=== PATIENT | male | born 1955 | race Caucasian/White ===

== ENCOUNTER 2017-12-09 16:51 | Inpatient (IN) ==
[2017-12-09] MEDS ORDERED: 0.9 % Sodium Chloride 1,000 ML IVC ONE ×2 (17:12→17:57)
[2017-12-09 17:23] LABS: Bilirubin,Urine Moderate (Negative); Blood,Urine Large (Negative); Clarity,Urine Turbid (Clear); Color,Urine Red (Yellow); Glucose,Urine (UA) Normal (Normal); Ketones,Urine 15 mg/dL (Negative); Leukocyte Esterase,Urine Large (Negative); Nitrite,Urine Positive (Negative); Protein,Urine >=300 mg/dL (Neg-Trace); Specific Gravity,Urine 1.021 (1.010-1.025)
[2017-12-09 17:25] LABS: Bacteria,Urine Many per hpf (None-Few); Hyaline Casts,Urine None Seen per lpf (None-Few); RBC,Urine TNTC per hpf (0-3); Squamous Epithelial Cell,Urine Many per lpf (None-Few); WBC,Urine TNTC per hpf (0-3)
[2017-12-09 17:45] LABS: Hematocrit 39.8 % (37.5-50.1); Hemoglobin 13.4 g/dL (12.9-16.9); Immature Platelets 5.6 % (1.1-6.1); Mean Corpuscular HGB Conc 33.7 g/dL (31.6-35.5); Mean Corpuscular Hemoglobin 30.6 pg (28.0-33.3); Mean Corpuscular Volume 90.9 fL (83.0-100.0); Mean Platelet Volume 10.5 fL (9.4-12.4); Red Blood Count 4.38 M/mcL (4.19-5.50); Red Cell Distribution Width 13.6 % (11.5-14.5)
--- NOTE | 2017-12-09 17:49 | Emergency Department Note ---
Disposition Clinical Impression: Pyelonephritis, Kidney stone, Acute kidney injury Disposition: Admitted As Inpatient Condition: Good General Adult HPI - General Chief complaint: ED General Medical Stated complaint: "chills,cough,vomiting" Time Seen by Provider: 12/09/17 17:09 Source: patient, family Limitations: no limitations - History of Present Illness Pain Scale: 9 - Related Data Home Medications Medication Instructions Recorded Confirmed Atorvastatin [Lipitor] 10 mg PO HS 11/19/17 12/09/17 Celecoxib [Celebrex] 200 mg PO BID 11/19/17 12/09/17 HYDROcodone/Acet 5/325 mg [[place] 1 - 2 tab PO Q12H PRN 11/19/17 12/09/17 5-325 mg] Pregabalin [Lyrica] 25 mg PO TID 11/19/17 12/09/17 Tamsulosin [Flomax] 0.4 mg PO DAILY 11/19/17 12/09/17 Allergies Allergy/AdvReac Type Severity Reaction Status Date / Time Varenicline [From Chantix] Allergy Agitated Verified 12/06/17 11:13 Past Medical History - Past Medical History Medical history: Reports: arthritis, GERD, hyperlipidemia, kidney stones Psychiatric history: Reports: no psych history - Social History Smoking Status: Current every day smoker Smokeless Tobacco Status: No Alcohol use: Reports: none Drug use: Reports: none Physical Exam - General Limitations: no limitations General appearance: alert, in no apparent distress Course Vital Signs Temperature 98.4 F 12/09/17 16:53 Pulse Rate 103 12/09/17 16:53 Respiratory Rate 14 12/09/17 16:53 Blood Pressure 123/69 12/09/17 16:53 O2 Sat by Pulse Oximetry 94 12/09/17 16:53 Temperature 101.1 F H 12/10/17 06:53 Pulse Rate 94 12/10/17 06:53 Respiratory Rate 15 12/10/17 06:53 Blood Pressure 101/59 12/10/17 06:53 O2 Sat by Pulse Oximetry 95 12/10/17 06:53 Oxygen Delivery Oxygen Delivery Room Air Medical Decision Making - Lab Data Result diagrams: 12/10/17 04:55 12/10/17 04:55 Lab Results 12/09/17 12/09/17 12/09/17 Range/Units 17:13 17:26 17:28 WBC 14.3 H D (4.3-11.1) K/mcL RBC 4.38 (4.19-5.50) M/mcL Hgb 13.4 D (12.9-16.9) g/dL Hct 39.8 (37.5-50.1) % MCV 90.9 (83.0-100.0) fL MCH 30.6 (28.0-33.3) pg MCHC 33.7 (31.6-35.5) g/dL RDW 13.6 (11.5-14.5) % Plt Count 95 L (140-400) K/mcL MPV 10.5 (9.4-12.4) fL Immature Plt Fraction 5.6 (1.1-6.1) % Sodium (136-145) mEq/L Potassium (3.5-5.1) mEq/L Chloride (98-107) mEq/L Carbon Dioxide (23-29) mEq/L BUN (8-23) mg/dL Creatinine (0.70-1.30) mg/dL Est GFR ( Amer) (> 60) Est GFR (Non-Af Amer) (> 60) BUN/Creatinine Ratio (6-26) Glucose (70-105) mg/dL Calculated Osmolality (280-300) Lactic Acid 1.2 (0.5-2.2) mmol/L Calcium (8.6-10.3) mg/dL Urine Color Red A (Yellow) Urine Clarity Turbid A (Clear) Urine pH 6.0 (5.0-8.0) pH Units Ur Specific [place] 1.021 (1.010-1.025) Urine Protein >=300 H (Neg-Trace) mg/dL Urine Glucose (UA) Normal (Normal) mg/dL Urine Ketones 15 H (Negative) mg/dL Urine Blood Large H (Negative) Urine Nitrite Positive A (Negative) Urine Bilirubin Moderate H (Negative) Urine Urobilinogen 2.0 H (Normal) mg/dL Ur Leukocyte Esterase Large H (Negative) Urine Microscopic RBC TNTC H (0-3) per hpf Urine Microscopic WBC TNTC H (0-3) per hpf Ur Squamous Epith Cells Many H (None-Few) per lpf Urine Bacteria Many H (None-Few) per hpf Hyaline Casts None Seen (None-Few) per lpf 12/09/17 Range/Units 17:28 WBC (4.3-11.1) K/mcL RBC (4.19-5.50) M/mcL Hgb (12.9-16.9) g/dL Hct (37.5-50.1) % MCV (83.0-100.0) fL MCH (28.0-33.3) pg MCHC (31.6-35.5) g/dL RDW (11.5-14.5) % Plt Count (140-400) K/mcL MPV (9.4-12.4) fL Immature Plt Fraction (1.1-6.1) % Sodium 133 L (136-145) mEq/L Potassium 4.1 (3.5-5.1) mEq/L Chloride 101 (98-107) mEq/L Carbon Dioxide 24 (23-29) mEq/L BUN 20 (8-23) mg/dL Creatinine 1.44 H (0.70-1.30) mg/dL Est GFR ( Amer) > 60 (> 60) Est GFR (Non-Af Amer) 50 L (> 60) BUN/Creatinine Ratio 14 (6-26) Glucose 137 H (70-105) mg/dL Calculated Osmolality 281 (280-300) Lactic Acid (0.5-2.2) mmol/L Calcium 8.8 (8.6-10.3) mg/dL Urine Color (Yellow) Urine Clarity (Clear) Urine pH (5.0-8.0) pH Units Ur Specific [place] (1.010-1.025) Urine Protein (Neg-Trace) mg/dL Urine Glucose (UA) (Normal) mg/dL Urine Ketones (Negative) mg/dL Urine Blood (Negative) Urine Nitrite (Negative) Urine Bilirubin (Negative) Urine Urobilinogen (Normal) mg/dL Ur Leukocyte Esterase (Negative) Urine Microscopic RBC (0-3) per hpf Urine Microscopic WBC (0-3) per hpf Ur Squamous Epith Cells (None-Few) per lpf Urine Bacteria (None-Few) per hpf Hyaline Casts (None-Few) per lpf Attestation Statement - Attestation Attestation: I examined this patient and my medical decision-making was reviewed with the LADLE WATCHER/PA/Advanced Practice Nurse/Resident Physician. I agree with the documented findings, disposition and treatment plan as described except to the extent set forth below. I did see the patient is spoke with him and examine home and he does have some left lower abdominal pain. said that he felt very hot at home. No antipyretics use today. Patient does complain of chills. Does have ureteral stent placed 2 weeks ago. Laboratory evaluation is pending and we will coordinate care with urology. [id number]
--- NOTE | 2017-12-09 17:53 | Emergency Department Note ---
Disposition Clinical Impression: Pyelonephritis, Kidney stone, Acute kidney injury Disposition: Admitted As Inpatient Condition: Good Time of Disposition: 19:30 Abdominal Pain HPI - General Chief Complaint: ED General Medical Stated Complaint: "chills,cough,vomiting" Time Seen by Provider: 12/09/17 17:09 Source: patient, family Mode of arrival: ambulatory Limitations: no limitations Nursing Notes Reviewed: Yes Vital Signs Reviewed: Yes - History of Present Illness HPI Narrative: 62-year-old male presents an emergency department for chills and abdominal discomfort. Patient diagnosed with left ureteral stone in Jul 2017. He has had difficulty passing and follows with urologist Dr. Franz who had stents placed 2 weeks ago. Patient is scheduled to have a procedure to remove the kidney stones reportedly from the back. The procedure scheduled for Wednesday. Over the past 24 hours patient has felt warm to the touch per . He has noticed some chills. He denies any congestion but has been experiencing a cough. No sputum production. He reports urinary frequency with hematuria. Denies any dysuria. Denies any injury or trauma. Pt Subjective Complaint: abdominal pain Pain Scale: 9 - Related Data Home Medications Medication Instructions Recorded Confirmed Atorvastatin [Lipitor] 10 mg PO HS 11/19/17 12/09/17 Celecoxib [Celebrex] 200 mg PO BID 11/19/17 12/09/17 HYDROcodone/Acet 5/325 mg [[place] 1 - 2 tab PO Q12H PRN 11/19/17 12/09/17 5-325 mg] Pregabalin [Lyrica] 25 mg PO TID 11/19/17 12/09/17 Tamsulosin [Flomax] 0.4 mg PO DAILY 11/19/17 12/09/17 Allergies Allergy/AdvReac Type Severity Reaction Status Date / Time Varenicline [From Chantix] Allergy Agitated Verified 12/06/17 11:13 All systems ED: reviewed and negative except as stated. Review of Systems: As Per HPI Constitutional: Denies: fever, chills ENT ED: Denies: congestion Cardiovascular: Denies: chest pain Respiratory: Denies: cough, dyspnea Gastrointestinal: Reports: abdominal pain, nausea. Denies: vomiting Genitourinary: Reports: urgency, frequency, hematuria Musculoskeletal: Reports: back pain Integumentary: Denies: rash, abrasion Neurological: Denies: headache Abdominal Pain PMH - Past Medical History Medical history: Reports: arthritis, GERD, hyperlipidemia, kidney stones Male Surgical History: Reports: ureteral stent Psychiatric history: Reports: no psych history - Social History Smoking status: Current every day smoker Alcohol use: Reports: none Drug use: Reports: none Physical Exam - General Limitations: no limitations General appearance: alert, in no apparent distress - Head Head exam: atraumatic, normocephalic, normal inspection - Chest Chest inspection: Present: normal inspection, symmetric chest wall rise - Respiratory Respiratory exam: Present: normal lung sounds bilaterally, wheezes. Absent: respiratory distress - Cardiovascular Cardiovascular exam: Present: regular rate, normal rhythm, normal heart sounds - Abdominal Exam Abdominal exam: Present: soft, Non-Tender, normal bowel sounds. Absent: tenderness, distention, guarding, rebound, rigidity - Extremities Exam Extremities exam: Present: normal inspection, full ROM. Absent: tenderness, pedal edema - Back Exam Back exam: Present: normal inspection, full ROM, CVA tenderness (L) (mild). Absent: tenderness, CVA tenderness (R) - Psychiatric Psychiatric exam: Present: normal affect, normal mood - Skin Skin exam: Present: warm, dry, intact, normal color. Absent: rash, cyanosis, diaphoresis Course Course Narrative: Patient is afebrile on arrival. He is mildly tachycardic 103. His abdomen is soft and mildly distended due to obesity without focal tenderness. He is not warm to the touch. Lungs with some slight wheezing. Mild CVA tenderness on the left with no kidney stones. At this time concerning for possible urinary tract infection versus pyelonephritis. Will obtain some basic labs a lactate and urinalysis. Patients in agreement with this plan. - Reevaluation(s) Reevaluation #1: Review of urinalysis consistent with urinary tract infection. Positive nitrite and leuk esterase. Review of his labs shows a leukocytosis of 14. He has some acute kidney injury with a elevated creatinine 1.4 elevated from 0.88 just a few days ago. His lactate is normal. Patient is not hypotensive but will fluid hydration with normal saline. symptoms improving with Zofran and fentanyl. Patient will require admission for evaluation of possible septic stone and removal of a stent sooner than later. Patient is afebrile here. He is non-septic appearing. I will touch base with the urologist on any emergent intervention. Patients in agreement with this plan. Time: 18:50 Reevaluation #2: Review the CT scan shows left kidney stone with some hydronephrosis. The stent is in place. There is some findings consistent with infectious process. Patient will be treated with Rocephin. No further orders at this time. - Consultations Consultation #1: Spoke with Dr. Garcia regarding patient's case and presentation. Concerning for pyelonephritis and infected stone/stent given subjective fever, leukocytosis and urinalysis consistent with infection. Recommend to repeat CT abdomen and pelvis and admit to hospitalist. No emergent intervention at this time. Will treat with Rocephin. No prior urine cultures on file. Patient is in agreement with this plan. Time: 19:00 Consultation #2: Spoke with on-call hospitalist neida Medina to admit for pyelonephritis, acute kidney injury, septic stone. No further orders at this time Time: 19:30 Vital Signs Temperature 98.4 F 12/09/17 16:53 Pulse Rate 103 12/09/17 16:53 Respiratory Rate 14 12/09/17 16:53 Blood Pressure 123/69 12/09/17 16:53 O2 Sat by Pulse Oximetry 94 12/09/17 16:53 Temperature 98.4 F 12/09/17 17:17 Pulse Rate 102 12/09/17 19:53 Respiratory Rate 18 12/09/17 19:53 Blood Pressure 122/54 12/09/17 19:53 O2 Sat by Pulse Oximetry 93 12/09/17 19:53 Oxygen Delivery Oxygen Delivery Room Air Abdominal Pain - MDM Narrative Medical decision making narrative: Patient was discussed with my attending physician who agrees with ED management and final disposition. They independently evaluated the patient. Please refer to their attestation to this encounter for additional information. This note was generated by [employer] voice recognition software and as a result grammatical or spelling errors may occur using this program. - Medical Records Medical records reviewed: Yes I reviewed the patient's medical records. - Lab Data Lab results reviewed: Yes I reviewed the patient's lab results. Result diagrams: 12/09/17 17:28 12/09/17 17:28 Lab Results 12/09/17 12/09/17 12/09/17 Range/Units 17:13 17:26 17:28 WBC 14.3 H D (4.3-11.1) K/mcL RBC 4.38 (4.19-5.50) M/mcL Hgb 13.4 D (12.9-16.9) g/dL Hct 39.8 (37.5-50.1) % MCV 90.9 (83.0-100.0) fL MCH 30.6 (28.0-33.3) pg MCHC 33.7 (31.6-35.5) g/dL RDW 13.6 (11.5-14.5) % Plt Count 95 L (140-400) K/mcL MPV 10.5 (9.4-12.4) fL Immature Plt Fraction 5.6 (1.1-6.1) % Sodium (136-145) mEq/L Potassium (3.5-5.1) mEq/L Chloride (98-107) mEq/L Carbon Dioxide (23-29) mEq/L BUN (8-23) mg/dL Creatinine (0.70-1.30) mg/dL Est GFR ( Amer) (> 60) Est GFR (Non-Af Amer) (> 60) BUN/Creatinine Ratio (6-26) Glucose (70-105) mg/dL Calculated Osmolality (280-300) Lactic Acid 1.2 (0.5-2.2) mmol/L Calcium (8.6-10.3) mg/dL Urine Color Red A (Yellow) Urine Clarity Turbid A (Clear) Urine pH 6.0 (5.0-8.0) pH Units Ur Specific [place] 1.021 (1.010-1.025) Urine Protein >=300 H (Neg-Trace) mg/dL Urine Glucose (UA) Normal (Normal) mg/dL Urine Ketones 15 H (Negative) mg/dL Urine Blood Large H (Negative) Urine Nitrite Positive A (Negative) Urine Bilirubin Moderate H (Negative) Urine Urobilinogen 2.0 H (Normal) mg/dL Ur Leukocyte Esterase Large H (Negative) Urine Microscopic RBC TNTC H (0-3) per hpf Urine Microscopic WBC TNTC H (0-3) per hpf Ur Squamous Epith Cells Many H (None-Few) per lpf Urine Bacteria Many H (None-Few) per hpf Hyaline Casts None Seen (None-Few) per lpf 12/09/17 Range/Units 17:28 WBC (4.3-11.1) K/mcL RBC (4.19-5.50) M/mcL Hgb (12.9-16.9) g/dL Hct (37.5-50.1) % MCV (83.0-100.0) fL MCH (28.0-33.3) pg MCHC (31.6-35.5) g/dL RDW (11.5-14.5) % Plt Count (140-400) K/mcL MPV (9.4-12.4) fL Immature Plt Fraction (1.1-6.1) % Sodium 133 L (136-145) mEq/L Potassium 4.1 (3.5-5.1) mEq/L Chloride 101 (98-107) mEq/L Carbon Dioxide 24 (23-29) mEq/L BUN 20 (8-23) mg/dL Creatinine 1.44 H (0.70-1.30) mg/dL Est GFR ( Amer) > 60 (> 60) Est GFR (Non-Af Amer) 50 L (> 60) BUN/Creatinine Ratio 14 (6-26) Glucose 137 H (70-105) mg/dL Calculated Osmolality 281 (280-300) Lactic Acid (0.5-2.2) mmol/L Calcium 8.8 (8.6-10.3) mg/dL Urine Color (Yellow) Urine Clarity (Clear) Urine pH (5.0-8.0) pH Units Ur Specific [place] (1.010-1.025) Urine Protein (Neg-Trace) mg/dL Urine Glucose (UA) (Normal) mg/dL Urine Ketones (Negative) mg/dL Urine Blood (Negative) Urine Nitrite (Negative) Urine Bilirubin (Negative) Urine Urobilinogen (Normal) mg/dL Ur Leukocyte Esterase (Negative) Urine Microscopic RBC (0-3) per hpf Urine Microscopic WBC (0-3) per hpf Ur Squamous Epith Cells (None-Few) per lpf Urine Bacteria (None-Few) per hpf Hyaline Casts (None-Few) per lpf - Radiology Data Radiology results reviewed: Yes I reviewed the patient's radiology results. Abdomen/Pelvis CT 12/09/17 19:17 IMPRESSION: Left ureteral stent in place with large number of small stones within the mid left ureter. Mild left hydronephrosis is evident. Urinary bladder wall thickening as well as left perinephric stranding. Small foci of gas within the upper left renal pelvis and nondependent urinary bladder may be related instrumentation. Correlation for infectious process is recommended. Bilateral inguinal hernias, the left which contains a new short segment of nonobstructed sigmoid colon. D/ / Leela Bailey Cha, MD / Leela Bailey Cha, MD Interpreting Provider: Leela Bailey Cha, MD
[2017-12-09 18:09] LABS: BUN/Creatinine Ratio 14 (6-26); Blood Urea Nitrogen 20 mg/dL (8-23); Calcium 8.8 mg/dL (8.6-10.3); Carbon Dioxide 24 mEq/L (23-29); Chloride 101 mEq/L (98-107); Glucose 137 mg/dL (70-105); Osmolality,Calculated 281 (280-300); Potassium 4.1 mEq/L (3.5-5.1); Sodium 133 mEq/L (136-145); eGFR For African Americans > 60 (> 60); eGFR For Non-African Americans 50 (> 60)
[2017-12-09] MEDS ORDERED: cefTRIAXone 2,000 MG in Water for inj. (sterile) 20 ML 20 ML IVP ONE (19:01)
[2017-12-09] MEDS ORDERED: Ondansetron 4 MG/2 ML VIAL IVP ONE (19:36)
[2017-12-09] MEDS ORDERED: *HR* FentaNYL (PF) 100 MCG/2 ML VIAL IVP ONE (19:36)
--- NOTE | 2017-12-09 20:46 | Urology - Consult Note ---
Date of Encounter: 12/09/17 Time of Encounter: 20:44 - Assessment and Plan (1) Acute kidney injury Current Visit: Yes Status: Acute Assessment and plan: Patient serum creatinine is slightly elevated above baseline. Likely secondary to dehydration. Continue IV fluids repeat in morning. (2) Kidney stone Current Visit: Yes Status: Acute Assessment and plan: Most of the patient's kidney stones have moved within the left proximal ureter. Left ureteral stent appears to be functioning well no plan on removing at this time. Patient is scheduled for left percutaneous nephrolithotomy on Wednesday. I will discuss the patient with Dr. Franz tomorrow regarding whether he wants to keep this plan or change to left ureteroscopic stone extraction. (3) Pyelonephritis Current Visit: Yes Status: Acute Assessment and plan: Patient has infected appearing urine. Recommend broad-spectrum antibiotics until cultures return. Urology CN:HPI Consult date: 12/09/17 Reason for consult Urology: Other (uti) Requesting physician: Hadley Felton History of present illness: Edwin is a 62-year-old male known to Dr. Franz for left-sided renal stones. She recently underwent left ureteroscopic stone extraction. Secondary to large voiding the stone Dr. Franz was unable to clear the patient's left kidney and schedule patient for left percutaneous nephrolithotomy this next Wednesday. Patient had an indwelling ureteral stent since the past surgery. Patient has been having fevers and not feeling well for the past couple of days. Minimal by mouth intake over the past few days. Positive nausea and vomiting. No fevers. Laboratory values upon arrival to the hospital today revealed elevated WBC count as well as infected appearing urine. Patient's serum creatinine is also elevated which is most likely secondary to dehydration. Patient had repeat CT scan which revealed that majority of the stones are now within the proximal left ureter. The left ureteral stent appears to be functioning well with minimal hydronephrosis in the left kidney. Past Med Surg Social Fam HX - Past Medical History Medical history: arthritis, GERD, hyperlipidemia, kidney stones Psychiatric history: no psych history - Social History Smoking Status: Current every day smoker Smokeless Tobacco Status: No Alcohol use: none Drug use: none Medications and Allergies Atorvastatin [Lipitor] 10 mg PO HS 11/19/17 [History] Celecoxib [Celebrex] 200 mg PO BID 11/19/17 [History] HYDROcodone/Acet 5/325 mg [[place] 5-325 mg] 1 - 2 tab PO Q12H PRN 11/19/17 [ History] Pregabalin [Lyrica] 25 mg PO TID 11/19/17 [History] Tamsulosin [Flomax] 0.4 mg PO DAILY 11/19/17 [History] 3 Allergy/AdvReac Type Severity Reaction Status Date / Time Varenicline [From Filecointix] Allergy Agitated Verified 12/06/17 11:13 Review of Systems - Constitutional fever(s), no chills - EENT Nose, mouth and throat: no dizziness, no headache(s) - Cardiovascular no chest pain, no dyspnea - Respiratory no cough, no dyspnea - Gastrointestinal abdominal pain, nausea, vomiting - Musculoskeletal back pain - Integumentary no erythema, no lesions - Neurological no confusion - Psychiatric no anxiety, no depression - Hematologic/Lymphatic no easy bleeding, no lymphadenopathy - Allergic/Immunologic no throat swelling, no wheezing Exam Initial Vital Signs Temp Pulse Resp BP Pulse Ox 98.4 F 103 14 123/69 94 12/09/17 16:53 12/09/17 16:53 12/09/17 16:53 12/09/17 16:53 12/09/17 16:53 General/Neuological: alert and oriented x 3 Eyes: normal pupils, non-icteric Neck: no lymphadenopathy noted, supple to touch Cardiovascular: RRR, no murmurs Respiratory: normal respiratory effort, clear bilaterally ABD: soft, nontender, no masses palpated, good bowel sounds Back: no pain on percussion bilaterally : normal phallus, normal scrotum, testicles and epididymides normal, urethral meatus normal. Skin: no rashes noted Musculoskeletal: normal gait, FROMx4 Urology Results - Labs 12/09/17 17:28 12/09/17 17:28 Abnormal lab results WBC 14.3 K/mcL (4.3-11.1) H D 12/09/17 17:28 Plt Count 95 K/mcL (140-400) L 12/09/17 17:28 Sodium 133 mEq/L (136-145) L 12/09/17 17:28 Creatinine 1.44 mg/dL (0.70-1.30) H 12/09/17 17:28 Est GFR (Non-Af Amer) 50 (> 60) L 12/09/17 17:28 Glucose 137 mg/dL (70-105) H 12/09/17 17:28 Urine Color Red (Yellow) A 12/09/17 17:13 Urine Clarity Turbid (Clear) A 12/09/17 17:13 Urine Protein >=300 mg/dL (Neg-Trace) H 12/09/17 17:13 Urine Ketones 15 mg/dL (Negative) H 12/09/17 17:13 Urine Blood Large (Negative) H 12/09/17 17:13 Urine Nitrite Positive (Negative) A 12/09/17 17:13 Urine Bilirubin Moderate (Negative) H 12/09/17 17:13 Urine Urobilinogen 2.0 mg/dL (Normal) H 12/09/17 17:13 Ur Leukocyte Esterase Large (Negative) H 12/09/17 17:13 Urine Microscopic RBC TNTC per hpf (0-3) H 12/09/17 17:13 Urine Microscopic WBC TNTC per hpf (0-3) H 12/09/17 17:13 Ur Squamous Epith Cells Many per lpf (None-Few) H 12/09/17 17:13 Urine Bacteria Many per hpf (None-Few) H 12/09/17 17:13 Diabetes panel 12/09/17 Range/Units 17:28 Sodium 133 L (136-145) mEq/L Potassium 4.1 (3.5-5.1) mEq/L Chloride 101 (98-107) mEq/L Carbon Dioxide 24 (23-29) mEq/L BUN 20 (8-23) mg/dL Creatinine 1.44 H (0.70-1.30) mg/dL Glucose 137 H (70-105) mg/dL Calcium 8.8 (8.6-10.3) mg/dL Calcium panel 12/09/17 Range/Units 17:28 Calcium 8.8 (8.6-10.3) mg/dL Pituitary panel 12/09/17 Range/Units 17:28 Sodium 133 L (136-145) mEq/L Potassium 4.1 (3.5-5.1) mEq/L Chloride 101 (98-107) mEq/L Carbon Dioxide 24 (23-29) mEq/L BUN 20 (8-23) mg/dL Creatinine 1.44 H (0.70-1.30) mg/dL Glucose 137 H (70-105) mg/dL Calcium 8.8 (8.6-10.3) mg/dL Adrenal panel 12/09/17 Range/Units 17:28 Sodium 133 L (136-145) mEq/L Potassium 4.1 (3.5-5.1) mEq/L Chloride 101 (98-107) mEq/L Carbon Dioxide 24 (23-29) mEq/L BUN 20 (8-23) mg/dL Creatinine 1.44 H (0.70-1.30) mg/dL Glucose 137 H (70-105) mg/dL Calcium 8.8 (8.6-10.3) mg/dL All other labs normal. - Imaging CT scan - abdomen: image reviewed CT scan - pelvis: image reviewed Consult Discharge Plan - Plan Referrals: Douglas Medina MD [Primary Care Provider] -
[2017-12-09] MEDS ORDERED: Naloxone 0.4 MG/ML INJ IVP PRN (21:50)
[2017-12-09] MEDS ORDERED: traMADol 50 MG TABLET PO PRN (21:50)
--- NOTE | 2017-12-09 22:12 | Internal Med History&Physical ---
Date of Encounter: 12/09/17 Time of Encounter: 21:00 Internal Medicine - H&P: HPI Chief complaint: Fever, abdominal pain Admitted From: Emergency Dept Plans for Post Hospital Care: Home History of present illness: Mr. Dial is a 62 year old male with h/o- kidney stones, presents with c/o- fever, chills, abdominal pain for 2 days. He has h/o- renal stones and stone extractions in the past. He also received a left ureteral stent recently, about 2 weeks ago, since when he has been having left lower abdominal and inguinal pain and discomfort and hematuria. He reports a 2-day h/o- fatigue, weakness, fevers and chills, nausea and vomiting and just does not feel well. He has not received antibiotics at home after stenting. Past Med Surg Social Fam HX - Past Medical History Source: patient Medical history: arthritis, GERD, hyperlipidemia, kidney stones Psychiatric history: no psych history - Past Surgical History Surgical History: herniorrhaphy - Social History Smoking Status: Current every day smoker Packs per day: 1 Smokeless Tobacco Status: No Alcohol use: none Drug use: none Occupational status: disabled Current living situation: Home, With Family Activity Level: Independent ambulation Recent Out of Country Travel Within the Last 8 Weeks: No Exposure or Possible Exposure to Illness During Travel: No - Family History Mother Living Status: Age at : 68 Hx Family Cardiac Disorders: Yes ([place]) Father Living Status: Age at : 50 Hx Family Respiratory Disorders: Yes (Black lung) Internal Medicine - H&P: Meds Atorvastatin [Lipitor] 10 mg PO HS 11/19/17 [History] Celecoxib [Celebrex] 200 mg PO BID 11/19/17 [History] HYDROcodone/Acet 5/325 mg [Rowley 5-325 mg] 1 - 2 tab PO Q12H PRN 11/19/17 [ History] Pregabalin [Lyrica] 25 mg PO TID 11/19/17 [History] Tamsulosin [Flomax] 0.4 mg PO DAILY 11/19/17 [History] 3 Allergy/AdvReac Type Severity Reaction Status Date / Time Varenicline [From Chantix] Allergy Agitated Verified 12/06/17 11:13 All Systems PM: A 10-system review of systems was performed and is negative for pertinent findings except as documented above in the HPI. - Constitutional Constitutional: chills, fatigue, fever(s), malaise, weakness - EENT Eyes: no change in vision, no discharge, no pain, no photophobia Ears: no ear discharge, no ear pain, no tinnitus Nose, mouth and throat: no dysphagia, no nasal discharge, no neck pain, no sore throat - Cardiovascular Cardiovascular ROS IM: no chest pain, no diaphoresis, no dyspnea, no lightheadedness, no palpitations, no syncope - Respiratory Respiratory: no cough, no dyspnea, no wheezing, no excessive phlegm production - Gastrointestinal Gastrointestinal: abdominal pain, nausea, vomiting - Musculoskeletal Musculoskeletal ROS IM: no numbness, no tingling - Integumentary Integumentary IM: no rash, no unusual bruising - Neurological Neurological ROS: no confusion, no convulsions, no focal weakness, no numbness, no tingling, no tremor(s) - Hematologic/Lymphatic Hematologic/Lymphatic: no easy bruising - Constitutional Vitals: Temp Pulse Resp BP Pulse Ox 98.4 F 102 16 111/53 93 12/09/17 17:17 12/09/17 19:53 12/09/17 21:20 12/09/17 21:20 12/09/17 19:53 General appearance: Present: A&O X 3, answers questions appropriately - Respiratory Respiratory exam: Present: CTAB. Absent: accessory muscle use, rales, rhonchi, wheezes - Cardiovascular Cardiovascular exam: Present: RRR, +S1, +S2. Absent: diastolic murmur, gallop, rubs, systolic murmur - GI/Abdominal GI/Abdominal exam: Present: normal bowel sounds, soft (tenderness to deep palpation in LLQ and inguinal area), no peritoneal signs. Absent: distended, tenderness - Extremities Exam Extremities exam: Present: full ROM, warm, radial pulses palpable and symmetrical. Absent: calf tenderness, cyanotic, pedal edema - Neurological Exam Neurological exam: Present: CN II-XII intact, oriented X3, no focal deficits. Absent: pronater drift, facial droop, speech deficit - Skin Skin exam: Present: dry, intact Internal Med - H&P Results - Labs CBC & Chem 7: 12/09/17 17:28 12/09/17 17:28 - Assessment and plan (1) Sepsis Current Visit: Yes Status: Acute Assessment and plan: presents with fever, leukocytosis and tachycardia; f/up blood and urine cultures and continue IV antibiotics; lactate normal; monitor vitals closely; Qualifiers: Sepsis type: sepsis due to unspecified organism Qualified Code(s): A41.9 - Sepsis, unspecified organism (2) UTI (urinary tract infection) Current Visit: Yes Status: Acute Assessment and plan: s/p left ureteral stent 2 weeks ago. Could not find previous urine cultures; continue IV Rocephin and f/up urine and blood cultures. UA appears dirty but could be contaminated; Qualifiers: Urinary tract infection type: site unspecified Hematuria presence: with hematuria Qualified Code(s): N39.0 - Urinary tract infection, site not specified; R31.9 - Hematuria, unspecified; R31.9 - Hematuria, unspecified (3) Tobacco abuse Current Visit: Yes Status: Chronic Assessment and plan: smoking cessation counse;ing given; Nicotine TD patch; (4) Acute kidney injury Current Visit: Yes Status: Acute Assessment and plan: serum creatinine slightly increased at 1.44; continue IV hydration and monitor creatinine closely; avoid nephrotoxins; - Time Spent With Patient Total time spent is greater than 50% in coordination of care (as documented) at patient's floor/unit and/or counseling patient:
[2017-12-09] MEDS ORDERED: *HR* Heparin 5,000 UNIT/ML VIAL SQ SCH (22:45)
[2017-12-09] MEDS: Nicotine 21 MG PATCH.TD24 TD SCH (23:23)
[2017-12-09] MEDS: *HR* OxyCODONE Immed Rel 5 MG TABLET PO PRN (23:23)
[2017-12-09] MEDS: Ringers Solution, Lactated 1,000 ML IVC SCH (23:24)
[2017-12-10] MEDS: Nicotine 21 MG PATCH.TD24 TD SCH ×2 (00:20→08:02)
[2017-12-10] MEDS: Acetaminophen 325 MG TABLET PO PRN ×3 (01:03→15:47)
[2017-12-10 05:28] LABS: Hematocrit 39.7 % (37.5-50.1); Red Cell Distribution Width 13.8 % (11.5-14.5)
[2017-12-10 05:31] LABS: Hemoglobin 12.8 g/dL (12.9-16.9); Mean Corpuscular HGB Conc 32.2 g/dL (31.6-35.5); Mean Corpuscular Hemoglobin 30.2 pg (28.0-33.3); Mean Corpuscular Volume 93.6 fL (83.0-100.0); Mean Platelet Volume 10.8 fL (9.4-12.4); Monocytes # 0.4 K/mcL (0.0-1.3); Red Blood Count 4.24 M/mcL (4.19-5.50)
[2017-12-10 05:33] LABS: Platelet Count 85 K/mcL (140-400)
[2017-12-10 05:43] LABS: Calcium 8.3 mg/dL (8.6-10.3)
[2017-12-10 06:03] LABS: Eosinophils # 0.2 K/mcL (0.0-0.6); Lymphocytes # 0.9 K/mcL (0.6-4.6); Neutrophils # 7.4 K/mcL (1.6-8.9); Platelet Estimate Decreased (Normal)
[2017-12-10] MEDS: Pregabalin 25 MG CAPSULE PO SCH ×3 (08:02→20:19)
--- NOTE | 2017-12-10 08:10 | Urology Progress Note ---
Date of Encounter: 12/10/17 Time of Encounter: 08:08 - Assessment and Plan (1) Acute kidney injury Current Visit: Yes Status: Acute Assessment and plan: Slightly worsening creatinine. We will continue to need to follow closely. (2) Kidney stone Current Visit: Yes Status: Acute Assessment and plan: Stable with stent placement. Currently on schedule with Dr. Franz on Wednesday for removal. (3) Pyelonephritis Current Visit: Yes Status: Acute Assessment and plan: Continue antibiotics until cultures return. Progress Note Narrative: Patient seen this morning. Patient are ready feeling better after IV fluids overnight. Also with antibiotics overnight. Patient still febrile and still with some rising serum creatinine. Objective Initial Vital Signs Temp Pulse Resp BP Pulse Ox 98.4 F 103 14 123/69 94 12/09/17 16:53 12/09/17 16:53 12/09/17 16:53 12/09/17 16:53 12/09/17 16:53 - General physical appearance Present: well developed, well nourished - Respiratory Present: normal expansion, normal respiratory effort - Abdomen Present: soft - Integumentary Present: no rash, no abnormal pigmentation - Labs 12/10/17 04:55 12/10/17 04:55 Diabetes panel 12/10/17 Range/Units 04:55 Sodium 134 L (136-145) mEq/L Potassium 4.0 (3.5-5.1) mEq/L Chloride 102 (98-107) mEq/L Carbon Dioxide 24 (23-29) mEq/L BUN 23 (8-23) mg/dL Creatinine 1.54 H (0.70-1.30) mg/dL Glucose 112 H (70-105) mg/dL Calcium 8.3 L (8.6-10.3) mg/dL Calcium panel 12/10/17 Range/Units 04:55 Calcium 8.3 L (8.6-10.3) mg/dL Pituitary panel 12/10/17 Range/Units 04:55 Sodium 134 L (136-145) mEq/L Potassium 4.0 (3.5-5.1) mEq/L Chloride 102 (98-107) mEq/L Carbon Dioxide 24 (23-29) mEq/L BUN 23 (8-23) mg/dL Creatinine 1.54 H (0.70-1.30) mg/dL Glucose 112 H (70-105) mg/dL Calcium 8.3 L (8.6-10.3) mg/dL Adrenal panel 12/10/17 Range/Units 04:55 Sodium 134 L (136-145) mEq/L Potassium 4.0 (3.5-5.1) mEq/L Chloride 102 (98-107) mEq/L Carbon Dioxide 24 (23-29) mEq/L BUN 23 (8-23) mg/dL Creatinine 1.54 H (0.70-1.30) mg/dL Glucose 112 H (70-105) mg/dL Calcium 8.3 L (8.6-10.3) mg/dL Consult Discharge Plan - Plan Referrals: Speedy Garcia MD [Partnered Physician] -
--- NOTE | 2017-12-10 11:07 | Internal Med Progress Note ---
<Yuki Feng - Last Filed: 12/10/17 16:33> Date of Encounter: 12/10/17 Time of Encounter: 11:06 - Assessment and plan (1) Sepsis Current Visit: Yes Status: Acute Assessment and plan: Sepsis criteria met on admission: Tachycardia, T max 101.6 F, WBC 14.3, likely source pyelonephritis Lactate was WNL Blood and urine cultures results pending - Stopped IV Rocephin - Start IV ciprofloxacin for broader coverage - Tylenol for fever Qualifiers: Sepsis type: sepsis due to unspecified organism Qualified Code(s): A41.9 - Sepsis, unspecified organism (2) Pyelonephritis Current Visit: Yes Status: Acute Assessment and plan: See plan for sepsis above (3) UTI (urinary tract infection) Current Visit: Yes Status: Acute Assessment and plan: UA shows positive nitrite, large leukocyte esterase, microscopic WBCs, urine bacteria Urine culture results pending - see plan for sepsis above Qualifiers: Urinary tract infection type: site unspecified Hematuria presence: with hematuria Qualified Code(s): N39.0 - Urinary tract infection, site not specified; R31.9 - Hematuria, unspecified; R31.9 - Hematuria, unspecified (4) Acute kidney injury Current Visit: Yes Status: Acute Assessment and plan: Serum creatinine 1.54, baseline appears to be around 0.88 - Use renal dosing and avoid nephrotoxins - Continue IVF - Continue Flomax - Recheck in a.m. (5) Kidney stone Current Visit: Yes Status: Acute Assessment and plan: Stable Hx of kidney stones 11/19/17 Left renal stone: left ureteroscopy, lithotripsy, stone extraction, and stent placement; previously scheduled for percutaneous nephrolithotomy (Dr. Franz) CT abdomen pelvis: left ureteral stent in place, large number of small stones in the mid-left ureter; mild hydronephrosis Scheduled for stone removal 12/13/[address] Franz (6) DVT prophylaxis Current Visit: Yes Status: Acute Assessment and plan: Heparin 5000 units SQ Q12H - Time Spent With Patient Total time spent is greater than 50% in coordination of care (as documented) at patient's floor/unit and/or counseling patient: - Subjective Interval history: Patient seen and examined at bedside this afternoon. He states that he feels a little bit better compared to yesterday. Patient admits fever, chills, shortness of breath which is at his baseline left-sided abdominal pain. Patient denies chest pain, flank pain. Patient does not speak much and is slow to answer, answers appropriately. - Constitutional Vitals: Temp Pulse Resp BP Pulse Ox 101.1 F H 94 15 101/59 95 12/10/17 06:53 12/10/17 06:53 12/10/17 06:53 12/10/17 06:53 12/10/17 08:36 Exam: General: vital signs noted, No acute distress, ill-appearing HEENT: head normocephalic/atraumatic, EOMI, miotic pupils bilateral Neck: Supple Cardio: RRR, no murmurs, +S1/S2 Pulm: CTAB, no wheezing, rales. Normal respiratory effort. Abdomen: soft, LLQ tender to palpation, BS+, no rebound, rigidity, guarding Extremities: No LE edema, no cyanosis Back: normal appearance on inspection, Nontender throughout Neuro: AAOx3, no focal deficit, no speech deficit, CN II-XII grossly intact, moves extremities spontaneously MSK: no visible deformities Skin: full body slightly erythematous and very warm, erythema is blanches, clean , dry, intact, no visible rashes Psych: Answers questions appropriately. Cooperative with exam Internal Medicine: Result - Labs CBC & Chem 7: 12/10/17 04:55 12/10/17 04:55 Labs: Short CBC 12/10/17 Range/Units 04:55 WBC 8.8 (4.3-11.1) K/mcL Hgb 12.8 L (12.9-16.9) g/dL Hct 39.7 (37.5-50.1) % Plt Count 85 L (140-400) K/mcL Neutrophils # 7.4 (1.6-8.9) K/mcL BMP 12/10/17 04:55 Sodium 134 L Potassium 4.0 Chloride 102 Carbon Dioxide 24 BUN 23 Creatinine 1.54 H Glucose 112 H Calcium 8.3 L Consult Discharge Plan - Plan Referrals: Speedy Garcia MD [Partnered Physician] - <Ramsey Torres - Last Filed: 12/10/17 16:56> Date of Encounter: 12/10/17 - Assessment and plan (1) Acute pyelonephritis Current Visit: Yes Status: Acute (2) Pyelonephritis Current Visit: Yes Status: Acute (3) Kidney stone Current Visit: Yes Status: Acute (4) Acute kidney injury Current Visit: Yes Status: Acute (5) Sepsis Current Visit: Yes Status: Acute Qualifiers: Sepsis type: sepsis due to unspecified organism Qualified Code(s): A41.9 - Sepsis, unspecified organism (6) Tobacco abuse Current Visit: Yes Status: Chronic (7) UTI (urinary tract infection) Current Visit: Yes Status: Acute Qualifiers: Urinary tract infection type: site unspecified Hematuria presence: with hematuria Qualified Code(s): N39.0 - Urinary tract infection, site not specified; R31.9 - Hematuria, unspecified; R31.9 - Hematuria, unspecified (8) DVT prophylaxis Current Visit: Yes Status: Acute - Time Spent With Patient Total time spent is greater than 50% in coordination of care (as documented) at patient's floor/unit and/or counseling patient: - Constitutional Vitals: Temp Pulse Resp BP Pulse Ox 98.5 F 96 16 115/62 92 12/10/17 16:38 12/10/17 16:38 12/10/17 16:38 12/10/17 16:38 12/10/17 16:38 Internal Medicine: Result - Labs CBC & Chem 7: 12/10/17 04:55 12/10/17 04:55 Labs: Short CBC 12/10/17 Range/Units 04:55 WBC 8.8 (4.3-11.1) K/mcL Hgb 12.8 L (12.9-16.9) g/dL Hct 39.7 (37.5-50.1) % Plt Count 85 L (140-400) K/mcL Neutrophils # 7.4 (1.6-8.9) K/mcL BMP 12/10/17 04:55 Sodium 134 L Potassium 4.0 Chloride 102 Carbon Dioxide 24 BUN 23 Creatinine 1.54 H Glucose 112 H Calcium 8.3 L - Attending Attestation I examined this patient and my medical decision-making was reviewed with the Resident Physician on 12/10/17. I agree with the documented findings, disposition and treatment plan as described except to the extent set forth below. Mr Dial is currently admitted for sepsis related to kidney stone and pyelonephritis. He remains moderate to high risk due to potential for worsening clinical status. Mr Dial is feeling OK. He remains weak. Has had some fever. No diarrhea. Some pain as well. No CP or SOB. Exam alert Mild distress Mucus membranes dry Heart slightly tachy Lungs diminished Abd soft I/P 1. Sepsis 2. Pyelo 3. Obstructive uropathy Further diagnoses and plan as above.
[2017-12-10] MEDS: Ringers Solution, Lactated 1,000 ML IVC SCH (12:09)
[2017-12-10] MEDS: *HR* OxyCODONE Immed Rel 5 MG TABLET PO PRN (13:42)
[2017-12-10] MEDS ORDERED: cefTRIAXone 2,000 MG in Water for inj. (sterile) 20 ML 20 ML IVPB SCH (18:00)
[2017-12-11] MEDS: Acetaminophen 325 MG TABLET PO PRN (00:26)
--- NOTE | 2017-12-11 07:01 | Urology Progress Note ---
Date of Encounter: 12/11/17 Time of Encounter: 07:00 - Assessment and Plan (1) Acute kidney injury Current Visit: Yes Status: Acute Assessment and plan: Awaiting repeat basic metabolic panel (2) Kidney stone Current Visit: Yes Status: Acute (3) Pyelonephritis Current Visit: Yes Status: Acute Assessment and plan: Recommend to continue broad-spectrum antibiotics until cultures return. Patient will need to remain on IV antibiotics at this time as he has had continued fevers. Progress Note Narrative: Patient seen this morning. Still feeling ill. Patient with low-grade fever last night. Labs pending at this time. Cultures still pending. Objective Initial Vital Signs Temp Pulse Resp BP Pulse Ox 98.4 F 103 14 123/69 94 12/09/17 16:53 12/09/17 16:53 12/09/17 16:53 12/09/17 16:53 12/09/17 16:53 - General physical appearance Present: well developed, well nourished - Respiratory Present: normal expansion, normal respiratory effort - Abdomen Present: soft, non tender. Absent: distended - Integumentary Present: no rash, no abnormal pigmentation - Psychiatric Present: oriented to time, oriented to person, oriented to place - Labs 12/10/17 04:55 12/10/17 04:55 Consult Discharge Plan - Plan Referrals: Speedy Garcia MD [Partnered Physician] -
[2017-12-11 07:06] LABS: Basophils % 0.4 %; Eosinophils % 0.9 %; Mean Corpuscular Volume 91.6 fL (83.0-100.0)
[2017-12-11 07:08] LABS: Eosinophils # 0.1 K/mcL (0.0-0.6); Hematocrit 33.6 % (37.5-50.1); Hemoglobin 11.1 g/dL (12.9-16.9); Immature Granulocytes % 0.7 % (0-4); Immature Platelets 5.8 % (1.1-6.1); Lymphocytes # 0.5 K/mcL (0.6-4.6); Lymphocytes % 8.6 %; Mean Corpuscular Hemoglobin 30.2 pg (28.0-33.3); Mean Platelet Volume 10.6 fL (9.4-12.4); Monocytes # 0.5 K/mcL (0.0-1.3); Monocytes % 8.3 %; Neutrophils # 4.5 K/mcL (1.6-8.9); Red Blood Count 3.67 M/mcL (4.19-5.50); Red Cell Distribution Width 13.7 % (11.5-14.5); Segmented Neutrophils % 81.1 %
[2017-12-11 07:22] LABS: BUN/Creatinine Ratio 21 (6-26); Blood Urea Nitrogen 20 mg/dL (8-23); Calcium 8.1 mg/dL (8.6-10.3); Carbon Dioxide 23 mEq/L (23-29); Chloride 103 mEq/L (98-107); Glucose 105 mg/dL (70-105); Osmolality,Calculated 277 (280-300); Potassium 3.5 mEq/L (3.5-5.1); Sodium 132 mEq/L (136-145); eGFR For African Americans > 60 (> 60); eGFR For Non-African Americans > 60 (> 60)
[2017-12-11 07:27] LABS: Platelet Count 84 K/mcL (140-400)
[2017-12-11] MEDS: Pregabalin 25 MG CAPSULE PO SCH ×3 (09:38→21:22)
[2017-12-11] MEDS: Nicotine 21 MG PATCH.TD24 TD SCH (09:42)
--- NOTE | 2017-12-11 15:28 | Internal Med Progress Note ---
<Yasmani Dominique - Last Filed: 12/11/17 15:25> Date of Encounter: 12/11/17 Time of Encounter: 09:52 - Assessment and plan (1) Sepsis Current Visit: Yes Status: Resolved Assessment and plan: - Sepsis criteria met on admission: Tachycardia, T max 101.6 F, WBC 14.3, likely source pyelonephritis - No longer meeting sepsis criteria. WBC and vitals wnl. - UA showing infection. Stranding on left and multiple stones on CT on admission. - Lactate was WNL - Blood and urine cultures results pending - Clinically improving. - Per urology notes, will need continued IV ABx. Plan - Rocephin broadened to Cipro (day 2) starting 12/10 - Day #3 of antibiotics total. - Tylenol for fever Qualifiers: Sepsis type: sepsis due to unspecified organism Qualified Code(s): A41.9 - Sepsis, unspecified organism (2) Pyelonephritis Current Visit: Yes Status: Acute Assessment and plan: See plan for sepsis above (3) Kidney stone Current Visit: Yes Status: Acute Assessment and plan: - Stable, non obstructing - Hx of kidney stones - 11/19/17 Left renal stone: left ureteroscopy, lithotripsy, stone extraction, and stent placement; previously scheduled for percutaneous nephrolithotomy (Dr. Franz) - CT abdomen pelvis on presentation : left ureteral stent in place, large number of small stones in the mid-left ureter; mild hydronephrosis - Urology following appreciate recommendations Plan - Pain control, Zofran - Scheduled for stone removal 12/13/[address] Franz (4) Acute kidney injury Current Visit: Yes Status: Acute Assessment and plan: Serum creatinine of 0.94 this AM which is improved from yesterday of 1.54 - baseline appears to be around 0.88 - Secondary to pyelonephritis which is improving as above. Plan - Use renal dosing and avoid nephrotoxins - Continue IVF - Continue Flomax - Recheck in a.m. (5) UTI (urinary tract infection) Current Visit: Yes Status: Acute Assessment and plan: UA shows positive nitrite, large leukocyte esterase, microscopic WBCs, urine bacteria Urine culture results pending - see plan for sepsis above Qualifiers: Urinary tract infection type: site unspecified Hematuria presence: with hematuria Qualified Code(s): N39.0 - Urinary tract infection, site not specified (6) Tobacco abuse Current Visit: Yes Status: Chronic Assessment and plan: smoking cessation counseling given; Nicotine TD patch; (7) DVT prophylaxis Current Visit: Yes Status: Acute Assessment and plan: Heparin 5000 units SQ Q12H (8) Acute pyelonephritis Current Visit: Yes Status: Acute Assessment and plan: as above. - Time Spent With Patient Total time spent is greater than 50% in coordination of care (as documented) at patient's floor/unit and/or counseling patient: 25 - 35 minutes - Subjective Interval history: Patient seen and examined at bedside. States overall he is feeling better with no complaints of fevers, chills, CP, SOB, back pain, abdominal pain, nausea, vomiting. States he is urinating well with no dysuria, frequency, urgency. - Constitutional Vitals: Temp Pulse Resp BP Pulse Ox 98.8 F 79 18 142/71 96 12/11/17 15:01 12/11/17 15:01 12/11/17 15:01 12/11/17 15:01 12/11/17 15:01 General appearance: Present: A&O X 3, answers questions appropriately Exam: Gen.: Vitals noted. No acute distress. AAOx3 HEENT: PERRL/EOMI, oropharynx clear, Normocephalic, atraumatic, MMM Cardiac: RRR, no murmur, +S1/S2 Pulmonary: CTA bilaterally, no wheezes, rales or rhonchi, equal chest expansion Abdomen: soft, nontender, BS noted, no guarding, no distention. Back: Mild left sided CVA tenderness. MSK: ROM intact, no joint swelling noted Extremities: no BLE edema, nontender calf, no cyanosis or clubbing Neuro: A&Ox3, moves all extremities, no focal deficits Psych: Appropriate mood and behavior Internal Medicine: Result - Labs CBC & Chem 7: 12/11/17 06:42 12/11/17 06:42 Labs: Short CBC 12/11/17 Range/Units 06:42 WBC 5.6 (4.3-11.1) K/mcL Hgb 11.1 L D (12.9-16.9) g/dL Hct 33.6 L (37.5-50.1) % Plt Count 84 L (140-400) K/mcL Neutrophils # 4.5 (1.6-8.9) K/mcL BMP 12/11/17 06:42 Sodium 132 L Potassium 3.5 Chloride 103 Carbon Dioxide 23 BUN 20 Creatinine 0.94 Glucose 105 Calcium 8.1 L Consult Discharge Plan - Plan Referrals: Speedy Garcia MD [Partnered Physician] - <Ramsey Torres - Last Filed: 12/11/17 16:50> Date of Encounter: 12/11/17 - Assessment and plan (1) Acute pyelonephritis Current Visit: Yes Status: Acute (2) Pyelonephritis Current Visit: Yes Status: Acute (3) Kidney stone Current Visit: Yes Status: Acute (4) Acute kidney injury Current Visit: Yes Status: Acute (5) Sepsis Current Visit: Yes Status: Resolved Qualifiers: Sepsis type: sepsis due to unspecified organism Qualified Code(s): A41.9 - Sepsis, unspecified organism (6) UTI (urinary tract infection) Current Visit: Yes Status: Acute Qualifiers: Urinary tract infection type: acute cystitis Hematuria presence: with hematuria Qualified Code(s): N30.01 - Acute cystitis with hematuria (7) Tobacco abuse Current Visit: Yes Status: Chronic (8) DVT prophylaxis Current Visit: Yes Status: Acute - Time Spent With Patient Total time spent is greater than 50% in coordination of care (as documented) at patient's floor/unit and/or counseling patient: - Constitutional Vitals: Temp Pulse Resp BP Pulse Ox 98.8 F 79 18 142/71 96 12/11/17 15:01 12/11/17 15:01 12/11/17 15:01 12/11/17 15:01 12/11/17 15:01 Internal Medicine: Result - Labs CBC & Chem 7: 12/11/17 06:42 12/11/17 06:42 Labs: Short CBC 12/11/17 Range/Units 06:42 WBC 5.6 (4.3-11.1) K/mcL Hgb 11.1 L D (12.9-16.9) g/dL Hct 33.6 L (37.5-50.1) % Plt Count 84 L (140-400) K/mcL Neutrophils # 4.5 (1.6-8.9) K/mcL BMP 12/11/17 06:42 Sodium 132 L Potassium 3.5 Chloride 103 Carbon Dioxide 23 BUN 20 Creatinine 0.94 Glucose 105 Calcium 8.1 L - Attending Attestation I examined this patient and my medical decision-making was reviewed with the Resident Physician on 12/11/17. I agree with the documented findings, disposition and treatment plan as described except to the extent set forth below. Mr Dial is currently admitted for pyleonephritis and obstructive uropathy. He remains moderate to high risk due to potential for worsening clinical status. Mr Dial is doing somewhat better today. No fever now but had low grade temp last night. Tolerating abx. No GI issues. Exam alert Comfortable at this time Mucus membranes dry Heart reg No wheeze abd soft No edema I/P 1. Pyelo 2. Stone Further diagnoses and plan as above.
[2017-12-12 03:09] LABS: Basophils % 0.4 %; Hemoglobin 11.3 g/dL (12.9-16.9); Immature Granulocytes % 0.7 % (0-4); Red Cell Distribution Width 13.4 % (11.5-14.5)
[2017-12-12 03:10] LABS: Eosinophils # 0.1 K/mcL (0.0-0.6); Eosinophils % 1.2 %; Hematocrit 33.9 % (37.5-50.1); Immature Platelets 5.4 % (1.1-6.1); Lymphocytes # 0.7 K/mcL (0.6-4.6); Lymphocytes % 12.8 %; Mean Corpuscular HGB Conc 33.3 g/dL (31.6-35.5); Mean Corpuscular Hemoglobin 30.3 pg (28.0-33.3); Mean Corpuscular Volume 90.9 fL (83.0-100.0); Mean Platelet Volume 10.5 fL (9.4-12.4); Monocytes # 0.6 K/mcL (0.0-1.3); Monocytes % 10.5 %; Neutrophils # 4.2 K/mcL (1.6-8.9); Red Blood Count 3.73 M/mcL (4.19-5.50); Segmented Neutrophils % 74.4 %
[2017-12-12 03:12] LABS: Platelet Count 90 K/mcL (140-400)
[2017-12-12 03:26] LABS: BUN/Creatinine Ratio 20 (6-26); Blood Urea Nitrogen 17 mg/dL (8-23); Carbon Dioxide 26 mEq/L (23-29); Chloride 102 mEq/L (98-107); Glucose 99 mg/dL (70-105); Osmolality,Calculated 280 (280-300); Potassium 3.4 mEq/L (3.5-5.1); Sodium 134 mEq/L (136-145); eGFR For African Americans > 60 (> 60); eGFR For Non-African Americans > 60 (> 60)
[2017-12-12] MEDS: Acetaminophen 325 MG TABLET PO PRN (04:28)
[2017-12-12 07:10] VITALS: BP 130/80
--- NOTE | 2017-12-12 08:09 | Urology Progress Note ---
Date of Encounter: 12/12/17 Time of Encounter: 08:08 - Assessment and Plan (1) Acute kidney injury Current Visit: Yes Status: Acute (2) Kidney stone Current Visit: Yes Status: Acute (3) Pyelonephritis Current Visit: Yes Status: Acute Assessment and plan: Results at this time. Continue Cipro as outpatient. Okay to discharge from urology standpoint as patient wants to go home today. I did discuss the patient that he needs to take his Cipro as directed. He is currently scheduled with Dr. Franz tomorrow for stone extraction. He is to call if he develops any fevers which would result in a likely cancellation of his surgery tomorrow. Progress Note Narrative: Patient seen this morning. Patient states he feels much better. No fevers overnight. Cultures negative. Objective Initial Vital Signs Temp Pulse Resp BP Pulse Ox 98.4 F 103 14 123/69 94 12/09/17 16:53 12/09/17 16:53 12/09/17 16:53 12/09/17 16:53 12/09/17 16:53 - General physical appearance Present: well developed, well nourished - Respiratory Present: normal expansion, normal respiratory effort - Abdomen Present: soft. Absent: tender - Labs 12/12/17 02:44 12/12/17 02:44 Diabetes panel 12/12/17 Range/Units 02:44 Sodium 134 L (136-145) mEq/L Potassium 3.4 L (3.5-5.1) mEq/L Chloride 102 (98-107) mEq/L Carbon Dioxide 26 (23-29) mEq/L BUN 17 (8-23) mg/dL Creatinine 0.83 (0.70-1.30) mg/dL Glucose 99 (70-105) mg/dL Calcium 8.0 L (8.6-10.3) mg/dL Calcium panel 12/12/17 Range/Units 02:44 Calcium 8.0 L (8.6-10.3) mg/dL Pituitary panel 12/12/17 Range/Units 02:44 Sodium 134 L (136-145) mEq/L Potassium 3.4 L (3.5-5.1) mEq/L Chloride 102 (98-107) mEq/L Carbon Dioxide 26 (23-29) mEq/L BUN 17 (8-23) mg/dL Creatinine 0.83 (0.70-1.30) mg/dL Glucose 99 (70-105) mg/dL Calcium 8.0 L (8.6-10.3) mg/dL Adrenal panel 12/12/17 Range/Units 02:44 Sodium 134 L (136-145) mEq/L Potassium 3.4 L (3.5-5.1) mEq/L Chloride 102 (98-107) mEq/L Carbon Dioxide 26 (23-29) mEq/L BUN 17 (8-23) mg/dL Creatinine 0.83 (0.70-1.30) mg/dL Glucose 99 (70-105) mg/dL Calcium 8.0 L (8.6-10.3) mg/dL Consult Discharge Plan - Plan Referrals: Speedy Garcia MD [Partnered Physician] -
--- NOTE | 2017-12-12 09:03 | Discharge Summary ---
<Yasmani Dominique - Last Filed: 12/12/17 11:58> - NOTES TO OUTPATIENT PROVIDER Notes to Outpatient Provider: Scheduled for urology follow up with Dr. Franz on 12/13/17 Orders not resulted at time of discharge: Pending orders 12/10/17 17:13 Culture,Urine [RM] Stat Date of Encounter: 12/12/17 Time of Encounter: 09:01 - Discharge Diagnosis (1) Pyelonephritis Priority: Primary Status: Acute (2) Kidney stone Priority: Secondary Status: Acute (3) Acute kidney injury Priority: Secondary Status: Acute (4) Sepsis Priority: Secondary Status: Resolved Qualifiers: Sepsis type: sepsis due to unspecified organism Qualified Code(s): A41.9 - Sepsis, unspecified organism (5) UTI (urinary tract infection) Priority: Secondary Status: Acute Qualifiers: Urinary tract infection type: acute cystitis Hematuria presence: with hematuria Qualified Code(s): N30.01 - Acute cystitis with hematuria (6) Tobacco abuse Priority: Secondary Status: Chronic (7) DVT prophylaxis Priority: Secondary Status: Acute (8) Acute pyelonephritis Priority: Primary Status: Acute Hospital course: Mr. Dial is a 62 year old male with past medical history of arthritis, reflux , nephrolithiasis presents the emergency room with chief complaint of chills and abdominal discomfort. He does have a known history of ureteral stones diagnosed in July 2017. He is also had ureteral stents placed [address] Franz. He also reported urinary frequency and hematuria. On presentation to the emergency room, vitals were stable for a heart rate of 103, otherwise unremarkable. Labs were significant for WBC of 14.3, sodium 133, creatinine 1.44, urinalysis showing a large amount of blood, ketones, nitrates, leukocyte esterase, WBC. CT scan shows a left ureteral stent in place with a large number of small stones in the mid left ureter and mild left hydronephrosis as well as urinary bladder wall thickening and left perinephric stranding. He was admitted to medicine service for further evaluation and management of sepsis, pyelonephritis and nephrolithiasis. During course of hospital stay, patient did gradually improve. Urology was consulted in the emergency department and followed during his case. Patient was started on Rocephin for antibiotic coverage which was then brought into Cipro but the suggestion of the urologist. His sepsis did resolve during admission. Patient states that his pain is greatly improved and he is eager to return home. He is medically stable and day of discharge. Per urology note, patient is stable for discharge and should continue his appointment Wednesday with Dr. Franz for stone removal. He will be prescribed Cipro prescription for an additional 7 days for a total of 10 day course. He was instructed to follow- up with his primary care physician as well as his urologist. Medically stable for discharge at this time. He is instructed to return to the emergency department if his symptoms should return including fevers, chills, inability to urinate. Discharge discussed with: patient, professional services consultant - Time Spent with Patient Total time spent providing and/or coordinating discharge services: - Discharge Medications Prescriptions: Ciprofloxacin [Cipro] 500 mg PO BID #14 tablet Home Medications: Atorvastatin [Lipitor] 10 mg PO HS 11/19/17 [History] Celecoxib [Celebrex] 200 mg PO BID 11/19/17 [History] HYDROcodone/Acet 5/325 mg [[place] 5-325 mg] 1 - 2 tab PO Q12H PRN 11/19/17 [ History] Pregabalin [Lyrica] 25 mg PO TID 11/19/17 [History] Tamsulosin [Flomax] 0.4 mg PO DAILY 11/19/17 [History] Ciprofloxacin [Cipro] 500 mg PO BID #14 tablet 12/12/17 [Rx] Allergies/Adverse Reactions: 3 Allergy/AdvReac Type Severity Reaction Status Date / Time Varenicline [From Chantix] Allergy Agitated Verified 12/06/17 11:13 Date of admission: 12/09/17 21:50 Primary care physician: Douglas Medina MD Discharging clinician: Yasmani Dominique Anticipated date of discharge: 12/12/17 - Constitutional Vitals: Temp Pulse Resp BP Pulse Ox 97.6 F 67 16 130/80 93 12/12/17 07:08 12/12/17 07:08 12/12/17 07:08 12/12/17 07:08 12/12/17 07:08 General appearance: Present: A&O X 3, answers questions appropriately Exam: Gen.: Vitals noted. No acute distress. AAOx3 HEENT: PERRL/EOMI, oropharynx clear, Normocephalic, atraumatic, moist mucous membranes Cardiac: RRR, no murmur, +S1/S2 Pulmonary: CTA bilaterally, no wheezes, rales or rhonchi, equal chest expansion Abdomen: soft, nontender, BS noted, no guarding Back: Mildly tender to palpation on left CVA, however this is greatly improved. MSK: ROM intact, no joint swelling noted Extremities: no BLE edema, nontender calf, no cyanosis or clubbing Neuro: A&Ox3, moves all extremities, no focal deficits Psych: Appropriate mood and behavior - Patient Status Disposition: Home, Self-Care Condition: Good Functional capacity at discharge: independent ambulation Overall status at discharge: patient is progressing back to baseline - Discharge Instructions Instructions: Urinary Tract Infection in Men (DC) Follow Up With: Speedy Garcia MD [Partnered Physician] - Additional Instructions: Please follow-up with your primary care physician as well as urology appointment on Wednesday. Please call urology office if you experience fevers between now and that time. These take all medications as prescribed. Return to the emergency department if she expands worsening of symptoms including increased pain, inability to urinate, fevers, chills. - Diet and Activity Activity: increase activity as tolerated, resume usual activities as tolerated Diet: advance to your usual diet <Ramsey Torres - Last Filed: 12/12/17 16:10> Orders not resulted at time of discharge: Pending orders 12/10/17 17:13 Culture,Urine [RM] Stat Date of Encounter: 12/12/17 - Discharge Diagnosis (1) Acute pyelonephritis Status: Acute (2) UTI (urinary tract infection) Status: Acute Qualifiers: Urinary tract infection type: acute cystitis Hematuria presence: with hematuria Qualified Code(s): N30.01 - Acute cystitis with hematuria (3) Pyelonephritis Status: Acute (4) Kidney stone Status: Acute (5) Acute kidney injury Status: Acute (6) Sepsis Status: Resolved Qualifiers: Sepsis type: sepsis due to unspecified organism Qualified Code(s): A41.9 - Sepsis, unspecified organism (7) Tobacco abuse Status: Chronic (8) DVT prophylaxis Status: Acute Hospital course: Mr. Dial is a 62 year old male - Time Spent with Patient Total time spent providing and/or coordinating discharge services: 38min Date of admission: 12/09/17 21:50 Primary care physician: Douglas Medina MD - Constitutional Vitals: Temp Pulse Resp BP Pulse Ox 97.6 F 67 16 130/80 93 12/12/17 07:08 12/12/17 07:08 12/12/17 07:08 12/12/17 07:08 12/12/17 07:08 - Attending Attestation I examined this patient and my medical decision-making was reviewed with the Resident Physician on 12/12/17. I agree with the documented findings, disposition and treatment plan as described except to the extent set forth below. Mr Dial has been admitted for sepsis related to UTI and obstructive uropathy. He is currently afebrile and doing much better. He is scheduled as outpatient for stone extraction. He is tolerating PO and ready for discharge home. Exam Alert Comfortable Mucus membranes dry Heart not tachy Lungs no wheeze Plan D/C home today Follow up for procedure as arranged
[2017-12-12] MEDS: Pregabalin 25 MG CAPSULE PO SCH (09:39)
[2017-12-12] MEDS: Nicotine 21 MG PATCH.TD24 TD SCH (09:39)
== END 2017-12-12 11:05 | disposition home or self-care (01) | DRG 872 ==
LOC: 3ANU 16:51 → EMEROO 16:51 → 3ANU 21:34 → SUATTDRO 21:50
PROVIDERS: ADMIT Internal Medicine; ATTEND Internal Medicine

== ENCOUNTER 2021-03-21 10:39 | Inpatient (IN) ==
[2021-03-21] MEDS ORDERED: Isovue-370 500 ML BOTTLE IVP ONE (11:04)
[2021-03-21] MEDS ORDERED: 0.9 % Sodium Chloride 1,000 ML IVC ONE (11:04)
[2021-03-21] MEDS ORDERED: Ipratropium/Albuterol Neb 3 ML IH ONE (11:09)
[2021-03-21 11:57] LABS: Hematocrit 24.6 % (37.5-50.1); Hemoglobin 7.7 g/dL (12.9-16.9); Mean Corpuscular HGB Conc 31.3 g/dL (31.6-35.5); Mean Corpuscular Hemoglobin 27.5 pg (28.0-33.3); Mean Corpuscular Volume 87.9 fL (83.0-100.0); Nucleated Red Blood Cells 6.7 /100 WBC (0); Red Cell Distribution Width 20.9 % (11.5-14.5)
[2021-03-21 12:26] LABS: Platelet Count 5 K/mcL (140-400)
[2021-03-21 12:27] LABS: Alanine Aminotransferase 170 Units/L (7-52); Albumin/Globulin Ratio 1.2 (1.1-2.2); Alkaline Phosphatase 211 Units/L (34-104); Aspartate Amino Transferase 102 Units/L (13-39); BUN/Creatinine Ratio 54 (6-26); Bilirubin,Direct 0.7 mg/dL (0.0-0.2); Bilirubin,Indirect 0.7 mg/dL (0.0-1.0); Bilirubin,Total 1.4 mg/dL (0.3-1.0); Blood Urea Nitrogen 59 mg/dL (8-23); Calcium 8.5 mg/dL (8.6-10.3); Carbon Dioxide 27 mEq/L (23-29); Chloride 102 mEq/L (98-107); Globulin 2.5 g/dL (2.4-3.5); Glucose 125 mg/dL (70-105); Lipase 102 Units/L (11-82); Osmolality,Calculated 308 (280-300); Potassium 3.8 mEq/L (3.5-5.1); Sodium 140 mEq/L (136-145); Total Protein 5.5 g/dL (6.4-8.9); Troponin I < 0.03 ng/mL (< 0.04); eGFR For African Americans > 60 (> 60); eGFR For Non-African Americans > 60 (> 60)
[2021-03-21 12:37] LABS: Anisocytosis 1+ (Not Present); Platelet Estimate Marked Decrease (Normal); Polychromasia 1+ (Not Present)
[2021-03-21 12:42] LABS: Bacteria,Urine Few per hpf (None-Few); Bilirubin,Urine Negative (Negative); Blood,Urine Small (Negative); Clarity,Urine Clear (Clear); Color,Urine Yellow (Yellow); Glucose,Urine (UA) Normal (Normal); Hyaline Casts,Urine Few per lpf (None Seen); Ketones,Urine Negative (Negative); Leukocyte Esterase,Urine Trace (Negative); Mucus,Urine Few per lpf (None-Few); Nitrite,Urine Negative (Negative); Protein,Urine Trace mg/dL (Neg-Trace); Specific Gravity,Urine > 1.030 (1.010-1.025); Squamous Epithelial Cell,Urine Few per hpf (None-Few); WBC,Urine 0-3 per hpf (0-3)
[2021-03-21 12:42] LABS: Lymphocytes # 0.8 K/mcL (0.6-4.6); Neutrophils # 11.2 K/mcL (1.6-8.9)
[2021-03-21 12:43] LABS: Monocytes # 1.4 K/mcL (0.0-1.3)
[2021-03-21] MEDS ORDERED: *HR* FentaNYL (PF) 100 MCG/2 ML VIAL IVP ONE (12:47)
[2021-03-21] MEDS ORDERED: Naloxone 0.4 MG/ML INJ IVP PRN (13:12)
[2021-03-21] MEDS ORDERED: Ondansetron ODT 4 MG TAB.RAPDIS SL PRN (13:12)
[2021-03-21] MEDS ORDERED: Ipratropium/Albuterol Neb 3 ML IH PRN (15:15)
[2021-03-21 15:24] LABS: INR 1.3
[2021-03-21] MEDS ORDERED: Furosemide 20 MG TABLET PO PRN (15:25)
[2021-03-21] MEDS ORDERED: 0.9 % Sodium Chloride 250 ML ONE ×2 (15:27→18:38)
[2021-03-21 15:43] LABS: Activated Partial Thrombo Time 23.8 Seconds (26.0-36.0)
[2021-03-21] MEDS ORDERED: *HR* Codeine Sulfate 30 MG TABLET PO PRN (16:39)
[2021-03-21] MEDS: Pantoprazole 40 MG VIAL IVP SCH (18:04)
[2021-03-21] MEDS: methylPREDNISolone 125 MG/2 ML VIAL IVP SCH (18:08)
[2021-03-21] MEDS: Cefepime HCl 1,000 MG in Water for inj. (sterile) 10 ML IVP SCH (18:37)
[2021-03-21] MEDS ORDERED: Celecoxib 200 MG CAPSULE PO PRN (18:51)
[2021-03-21] MEDS ORDERED: *HR* OxyCODONE/APAP 10/325 TABLET PO PRN (18:51)
[2021-03-21] MEDS: Budesonide/Formoterol 160/4.5 1 PUFF INH IH SCH (20:07)
[2021-03-22] MEDS ORDERED: Cefepime HCl 1,000 MG in Water for inj. (sterile) 10 ML IVP SCH
[2021-03-22] MEDS: methylPREDNISolone 125 MG/2 ML VIAL IVP SCH ×4 (00:15→19:42)
[2021-03-22] MEDS: Cefepime HCl 1,000 MG in Water for inj. (sterile) 10 ML IVP SCH ×3 (03:02→19:37)
[2021-03-22 03:37] LABS: Basophils % 0.7 %; Eosinophils % 0.1 %; Hemoglobin 6.7 g/dL (12.9-16.9)
[2021-03-22 03:39] LABS: Basophils # 0.1 K/mcL (0.0-0.2); Hematocrit 22.4 % (37.5-50.1); Immature Granulocytes % 13.3 % (0-4); Immature Platelets 5.6 % (1.1-6.1); Lymphocytes # 1.4 K/mcL (0.6-4.6); Mean Corpuscular HGB Conc 29.9 g/dL (31.6-35.5); Mean Corpuscular Hemoglobin 26.9 pg (28.0-33.3); Mean Platelet Volume 9.5 fL (9.4-12.4); Monocytes # 0.7 K/mcL (0.0-1.3); Monocytes % 5.6 %; Neutrophils # 8.6 K/mcL (1.6-8.9); Nucleated Red Blood Cells 6.4 /100 WBC (0); Red Blood Count 2.49 M/mcL (4.19-5.50); Segmented Neutrophils % 69.3 %; White Blood Count 12.4 K/mcL (4.3-11.1)
[2021-03-22 03:42] LABS: Platelet Count 13 K/mcL (140-400)
[2021-03-22 03:56] LABS: Alanine Aminotransferase 156 Units/L (7-52); Albumin 2.6 g/dL (3.5-5.7); Alkaline Phosphatase 173 Units/L (34-104); Aspartate Amino Transferase 115 Units/L (13-39); BUN/Creatinine Ratio 55 (6-26); Bilirubin,Total 1.4 mg/dL (0.3-1.0); Blood Urea Nitrogen 54 mg/dL (8-23); Carbon Dioxide 26 mEq/L (23-29); Chloride 104 mEq/L (98-107); Globulin 2.7 g/dL (2.4-3.5); Glucose 128 mg/dL (70-105); Osmolality,Calculated 308 (280-300); Sodium 141 mEq/L (136-145); Total Protein 5.3 g/dL (6.4-8.9); eGFR For African Americans > 60 (> 60); eGFR For Non-African Americans > 60 (> 60)
[2021-03-22] MEDS: Pantoprazole 40 MG VIAL IVP SCH (08:38)
[2021-03-22] MEDS: Nicotine 21 MG PATCH.TD24 TD SCH (08:39)
[2021-03-22] MEDS: Cholecalciferol (D-3) 1,000 UNIT (25MCG) TABLET PO SCH (08:39)
[2021-03-22] MEDS ORDERED: Isovue-370 500 ML BOTTLE IVP ONE (09:08)
[2021-03-22] MEDS: Budesonide/Formoterol 160/4.5 1 PUFF INH IH SCH ×2 (10:16→20:04)
[2021-03-22] MEDS ORDERED: 0.9 % Sodium Chloride 250 ML ONE ×3 (10:36→19:51)
[2021-03-23] MEDS: methylPREDNISolone 125 MG/2 ML VIAL IVP SCH ×5 (01:46→23:47)
[2021-03-23] MEDS: Cefepime HCl 1,000 MG in Water for inj. (sterile) 10 ML IVP SCH ×3 (02:47→20:11)
[2021-03-23 03:17] LABS: Basophils # 0.1 K/mcL (0.0-0.2); Basophils % 0.8 %; Eosinophils % 0.1 %; Hematocrit 24.4 % (37.5-50.1); Hemoglobin 7.5 g/dL (12.9-16.9); Immature Granulocytes % 11.6 % (0-4); Lymphocytes % 9.9 %; Mean Corpuscular HGB Conc 30.7 g/dL (31.6-35.5); Mean Corpuscular Hemoglobin 27.6 pg (28.0-33.3); Mean Corpuscular Volume 89.7 fL (83.0-100.0); Mean Platelet Volume 9.7 fL (9.4-12.4); Monocytes % 7.4 %; Nucleated Red Blood Cells 7.9 /100 WBC (0); Red Blood Count 2.72 M/mcL (4.19-5.50); Red Cell Distribution Width 20.5 % (11.5-14.5); Segmented Neutrophils % 70.2 %; White Blood Count 13.6 K/mcL (4.3-11.1)
[2021-03-23 03:18] LABS: Lymphocytes # 1.4 K/mcL (0.6-4.6); Neutrophils # 9.6 K/mcL (1.6-8.9)
[2021-03-23 03:20] LABS: Platelet Count 12 K/mcL (140-400)
[2021-03-23 03:36] LABS: BUN/Creatinine Ratio 62 (6-26); Blood Urea Nitrogen 66 mg/dL (8-23); Calcium 7.8 mg/dL (8.6-10.3); Carbon Dioxide 25 mEq/L (23-29); Chloride 103 mEq/L (98-107); Glucose 130 mg/dL (70-105); Osmolality,Calculated 315 (280-300); Potassium 3.8 mEq/L (3.5-5.1); Sodium 142 mEq/L (136-145); eGFR For African Americans > 60 (> 60); eGFR For Non-African Americans > 60 (> 60)
[2021-03-23] MEDS: Budesonide/Formoterol 160/4.5 1 PUFF INH IH SCH ×2 (07:41→19:42)
[2021-03-23] MEDS: Pantoprazole 40 MG VIAL IVP SCH (08:29)
[2021-03-23] MEDS: Cholecalciferol (D-3) 1,000 UNIT (25MCG) TABLET PO SCH (09:00)
[2021-03-23] MEDS: Nicotine 21 MG PATCH.TD24 TD SCH (11:54)
[2021-03-23 11:57] LABS: Hemoglobin 7.7 g/dL (12.9-16.9)
[2021-03-23 11:59] LABS: Hematocrit 24.7 % (37.5-50.1); Immature Platelets 6.1 % (1.1-6.1); Mean Corpuscular HGB Conc 31.2 g/dL (31.6-35.5); Mean Corpuscular Hemoglobin 27.5 pg (28.0-33.3); Mean Corpuscular Volume 88.2 fL (83.0-100.0); Mean Platelet Volume 9.7 fL (9.4-12.4); Red Cell Distribution Width 20.4 % (11.5-14.5); White Blood Count 14.9 K/mcL (4.3-11.1)
[2021-03-23 12:03] LABS: Platelet Count 8 K/mcL (140-400)
[2021-03-23] MEDS ORDERED: IVIG (wt based) Privigen 5 GM/50 ML INFUS..BTL IVC SCH (12:15)
[2021-03-23] MEDS ORDERED: Immune Glob, Gamma (Gammagard) 10 GM/100 ML INFUS..BTL IVC SCH (12:30)
[2021-03-23] MEDS ORDERED: Immune Glob, Gamma (Gammagard) 20 GM/200 ML INFUS..BTL IVC SCH ×4 (12:30)
[2021-03-23 12:31] LABS: Lymphocytes # 1.9 K/mcL (0.6-4.6); Monocytes # 0.8 K/mcL (0.0-1.3); Neutrophils # 11.5 K/mcL (1.6-8.9); Platelet Estimate Marked Decrease (Normal)
[2021-03-23 12:33] LABS: Anisocytosis 2+ (Not Present); Polychromasia 1+ (Not Present)
[2021-03-23] MEDS: Immune Glob, Gamma (Gammagard) 10 GM/100 ML INFUS..BTL IVC SCH (16:14)
[2021-03-24] MEDS: Cefepime HCl 1,000 MG in Water for inj. (sterile) 10 ML IVP SCH ×2 (03:52→12:31)
[2021-03-24 05:02] LABS: BUN/Creatinine Ratio 64 (6-26); Blood Urea Nitrogen 77 mg/dL (8-23); Carbon Dioxide 23 mEq/L (23-29); Chloride 102 mEq/L (98-107); Glucose 144 mg/dL (70-105); Osmolality,Calculated 310 (280-300); Potassium 3.9 mEq/L (3.5-5.1); Sodium 137 mEq/L (136-145); eGFR For African Americans > 60 (> 60); eGFR For Non-African Americans 60 (> 60)
[2021-03-24] MEDS: methylPREDNISolone 125 MG/2 ML VIAL IVP SCH ×2 (05:51→12:35)
[2021-03-24 06:33] LABS: Hematocrit 21.5 % (37.5-50.1); Immature Platelets 11.3 % (1.1-6.1); Mean Corpuscular HGB Conc 32.6 g/dL (31.6-35.5); Mean Corpuscular Hemoglobin 31.1 pg (28.0-33.3); Mean Corpuscular Volume 95.6 fL (83.0-100.0); Nucleated Red Blood Cells 9.2 /100 WBC (0); Red Blood Count 2.25 M/mcL (4.19-5.50); White Blood Count 14.1 K/mcL (4.3-11.1)
[2021-03-24 06:51] LABS: Platelet Count 4 K/mcL (140-400)
[2021-03-24 07:08] LABS: Anisocytosis 2+ (Not Present); Hypochromasia Present (Not Present)
[2021-03-24 07:09] LABS: Lymphocytes # 1.4 K/mcL (0.6-4.6); Monocytes # 0.6 K/mcL (0.0-1.3)
[2021-03-24 07:10] LABS: Platelet Estimate Marked Decrease (Normal); Polychromasia 1+ (Not Present)
[2021-03-24] MEDS ORDERED: Immune Glob, Gamma (Gammagard) 30 GM/300 ML INFUS..BTL IVC SCH ×3 (09:00)
[2021-03-24] MEDS: Budesonide/Formoterol 160/4.5 1 PUFF INH IH SCH ×2 (10:15→20:22)
[2021-03-24] MEDS: Pantoprazole 40 MG VIAL IVP SCH (10:31)
[2021-03-24] MEDS: Cholecalciferol (D-3) 1,000 UNIT (25MCG) TABLET PO SCH (10:54)
[2021-03-24] MEDS: Nicotine 21 MG PATCH.TD24 TD SCH (10:54)
[2021-03-24 15:22] VITALS: BP 136/58; PULSE 81; TEMP 97.8; O2SAT 95
[2021-03-24] MEDS ORDERED: Pantoprazole 40 MG VIAL IVP SCH (18:00)
[2021-03-24] MEDS: Immune Glob, Gamma (Gammagard) 10 GM/100 ML INFUS..BTL IVC SCH (18:30)
== END 2021-03-24 20:30 | disposition hospice, home (50) | DRG 181 ==
LOC: EMEROOARM 10:39 → 2NENU 10:39 → SUATTDRO 13:55 → 2NENU 14:44
PROVIDERS: ADMIT Internal Medicine; ATTEND Internal Medicine